=== PATIENT | male | born 1970 | race Caucasian/White ===

== ENCOUNTER 2016-08-26 08:23 | Emergency (ER) | payer OTHER ==
[~2016-08-26] VITALS: Ht 172.7 cm; Wt 69.9 kg
[~2016-08-26 08:23] MED LIST: IBUPROFEN800 MG PO; MOTRIN800 MG PO; NO HOME MEDS; PROTONIX40 MG PO; ZOFRAN ODT8 MG PO
[2016-08-26] MEDS ORDERED: ERYTHROMYC1 APPLICAT LEFT EYE (10:49)
[2016-08-26 11:40] VITALS: BP 139/88
== END 2016-08-26 11:41 | disposition home or self-care (01) ==
LOC: EME 08:23
DX: H57.8 Other specified disorders of eye and adnexa (principal); F17.200 Nicotine dependence, unspecified, uncomplicated
CPT/HCPCS: 99281; 99285

== ENCOUNTER 2017-02-28 09:21 | Emergency (ER) | payer SELFPAY ==
[~2017-02-28] VITALS: Ht 172.7 cm; Wt 66.4 kg
[~2017-02-28 09:21] MED LIST changes: +ERYTHROMYC1 APPLICAT LEFT EYE
[2017-02-28] MEDS ORDERED: RECTASMOOTHE30 GM TP (09:52)
[2017-02-28] MEDS ORDERED: ANUSOL HC,ANUCO25 MG PR (09:52)
[2017-02-28 10:14] VITALS: BP 131/82
== END 2017-02-28 10:15 | disposition home or self-care (01) ==
LOC: EME 09:21
DX: K64.5 Perianal venous thrombosis (principal); Z85.47 Personal history of malignant neoplasm of testis; F17.200 Nicotine dependence, unspecified, uncomplicated; F12.90 Cannabis use, unspecified, uncomplicated
CPT/HCPCS: 99281; 99284